=== PATIENT | male | born 1980 | race African-American/Black ===

== ENCOUNTER 2017-01-16 11:43 | Emergency (ER) | payer OTHER ==
[~2017-01-16] VITALS: Ht 177.8 cm; Wt 93.0 kg
[~2017-01-16 11:43] MED LIST: ALBUTEROL0.09 MG/A1 INH; CIPRO500 M1 PO; MEDROL DOSEPAK1 PAC PO; NORVASC5 M1 PO; TESSALON PERLE100 MG PO; VENTOLIN HFA18 GM INH
--- NOTE | 2017-01-16 12:56 | ED GI/GU/ABDOMINAL COMPLAINT ---
History of Present Illness General Chief Complaint: General Adult Stated Complaint: DIZZY,FLANK PAIN Source: patient Exam Limitations: no limitations Allergies Coded Allergies: No Known Drug Allergies (Intermediate, UNKNOWN 07/19/16) Reconcile Medications Amlodipine Besylate (Norvasc) 5 MG TABLET 1 TAB PO DAILY HTN (Reported) Triage Note: PT STATES HE FELT LIGHT HEADED ALL THIS AM. PT DENIES COLD S/S. PT DENIES CHEST PAIN. PT STATE "I SHOULD DRINK MORE WATER". PT STATES HE HAS KIDNEY PROBLEMS AND HIS LEVELS WHERE HIGH. PT STATES THIS IS HOW HE FELT THE LAST TIME. Triage Nurses Notes Reviewed? yes HPI: This patient is a 36-year-old male with a past medical history including hypertension and substance abuse who presented to the emergency department today for evaluation of, "I just didn't feel well." Patient reported that he woke up not feeling well with lightheadedness, nausea, and general malaise. He reported that he initially thought that maybe his blood pressure was high, so he took his regular morning dose of amlodipine 5 mg. He reported that generally he takes this after he eats at approximately 1:00 in the afternoon. He reported that since he has been here in the emergency department he does feel better. He reported that he felt his kidneys, "throbbing," but not anymore. He reported that he has had kidney injury in the past. He denied any fevers, chills, visual changes, epistaxis, diaphoresis, chest pain, palpitations, shortness of breath, vomiting, abdominal pain, back pain, groin pain, urinary burning, urgency, frequency, blood in the urine, saddle paresthesia, bowel or bladder incontinence , or any other associated symptoms. (LISBET TEAGUE,MARILIA) Vital Signs & Intake/Output Vital Signs & Intake/Output ED Intake and Output 01/17 0000 01/16 1200 Intake Total Output Total Balance Patient 205 lb Weight Past History Travel History Traveled to [place] past 21 day No Medical History Any Pertinent Medical History? see below for history Neurological: NONE EENT: NONE Cardiovascular: hypertension Respiratory: NONE Gastrointestinal: NONE Hepatic: NONE Renal: ACUTE KIDNEY INJURY Musculoskeletal: NONE Psychiatric: cocaine abuse, cannabis abuse Endocrine: NONE Blood Disorders: NONE Cancer(s): NONE FRUIT COORDINATOR/Reproductive: NONE History of MRSA: No History of VRE: No History of CDIFF: No Surgical History Surgical History: non-contributory Psychosocial History Who do you live with Patient/Self Services at Home None What is your primary language Emir[place] Tobacco Use: Current Daily Use Daily Tobacco Use Amount/Type: => 5 Cigarettes daily ETOH Use: occasional use Illicit Drug Use: cocaine, marijuana Family History Family History, If Any: SISTER, , Age 47; Cause: Renal failure. FH: renal failure MOTHER, , Age 40-50; Cause: Bone cancer. Bone cancer Hx Contributory? No (MARILIA FRAUSTO PA-C) Review of Systems Review of Systems Constitutional: Reports: see HPI. EENTM: Reports: no symptoms. Respiratory: Reports: no symptoms. Cardiovascular: Reports: no symptoms. GI: Reports: no symptoms. Genitourinary: Reports: see HPI. Musculoskeletal: Reports: no symptoms. Skin: Reports: no symptoms. Neurological/Psychological: Reports: no symptoms. All Other Systems: Reviewed and Negative (MARILIA FRAUSTO PA-C) Physical Exam Physical Exam Gastrointestinal: normal bowel sounds, soft, non-tender, no organomegaly, NO REBOUND OR GUARDING. nONDISTENDED. NO PERITONEAL SIGNS Comments: Well-developed well-nourished person in no acute distress HEENT: Normal EENT exam, head normocephalic, moist mucous membranes PERRLA bilaterally. No papilledema Neck: Supple Back: Normal gait. No midline tenderness. No CVA tenderness bilaterally Cardiovascular: Regular rate and rhythm with no murmurs, rubs, gallops. No JVD or carotid bruits Respiratory: No respiratory distress. Breath sounds clear to auscultation bilaterally Extremity: Normal and equal pulses Neuro: Alert oriented x3, cranial nerves II through XII grossly intact. No focal neurologic deficits Skin: No appreciable rash on exposed skin, skin is warm and dry. Psych: Mood and affect is normal Core Measures ACS in differential dx? Yes Severe Sepsis Present: No Septic Shock Present: No (MARILIA FRAUSTO PA-C) Progress Differential Diagnosis: AAA, AMI, appendicitis, biliary colic, bowel obstruction , colon cancer, cholecystitis, diverticulitis, gastritis, hepatitis, ischemic bowel, inflamm bowel dis, pancreatitis, PUD/GERD, perforated viscous, pyelonephritis, UTI/pyelo, HYPERTENSIVE URGENCY, HYPERTENSIVE CRISIS, HYPERTENSION Plan of Care: Orders Procedure Date/time Status Heart Healthy Diet 01/16 D Active Add-on Test (ER Only) 01/16 1431 Active URINE DRUGS OF ABUSE 01/16 1255 Complete URINALYSIS 01/16 1235 Complete TROPONIN LEVEL 01/16 1235 Complete COMPREHENSIVE METABOLIC PANEL 01/16 1235 Complete CBC WITHOUT DIFFERENTIAL 01/16 123 Complete EKG 01/16 1235 Active Current Medications Sig/Gaetano Start time Last Medication Dose Stop Time Status Admin Ketorolac 30 MG ONCE ONE 01/16 1245 CAN Tromethamine 01/16 1246 (Toradol) Ondansetron HCl 4 MG ONCE ONE 01/16 1245 CAN (Zofran) 01/16 1246 Laboratory Tests 01/16/17 1255: Urine Opiates Screen < 100.00, Methadone Screen < 40, Barbiturate Screen < 60, Ur Phencyclidine Scrn < 6.00, Amphetamines Screen < 100, U Benzodiazepines Scrn < 85, Urine Cocaine Screen > 1000 H, Urine Cannabis Screen > 80.00 H 01/16/17 1254: Urine Color YEL, Urine Clarity CLEAR, Urine pH 6.0, Ur Specific Sarona 1.020, Urine Protein 100 H, Urine Ketones NEG, Urine Nitrite NEG, Urine Bilirubin NEG, Urine Urobilinogen 0.2, Ur Leukocyte Esterase NEG, Ur Microscopic SEDIMENT EXAMINED, Urine RBC 50-75 H, Urine WBC RARE, Ur Epithelial Cells RARE, Hyaline Casts 1-3 H, Granular Casts RARE H, Urine Mucus RARE, Urine Hemoglobin LARGE H, Urine Glucose NEG 01/16/17 1248: Anion Gap 10, Estimated GFR > 60, BUN/Creatinine Ratio 12.3, Glucose 90, Calcium 9.6, Total Bilirubin 0.9, AST 18, ALT 33, Alkaline Phosphatase 115, Troponin I < 0.01, Total Protein 7.6, Albumin 4.0, Globulin 3.6, Albumin/Globulin Ratio 1.1, CBC w Diff NO MAN DIFF REQ, RBC 5.51, MCV 79.9 L, MCH 26.6 L, RDW 13.7, MPV 8.0, Gran % 77.4 H, Lymphocytes % 12.3 L, Monocytes % 4.2, Eosinophils % 5.3 H, Basophils % 0.8, Absolute Granulocytes 9.2 H, Absolute Lymphocytes 1.5, Absolute Monocytes 0.5, Absolute Eosinophils 0.6, Absolute Basophils 0.1, PUBS MCHC 33.3 Initial ED EKG: LVH, nonspecific ST T wave chg, 68 BPM Comments: 01/16/2017 1:39:10 PM: As of the patient's bedside for evaluation. He is currently resting comfortably on the stretcher, awaiting his food tray. The patient reported that he has been told that he has blood in his urine in the past. His primary care physician is aware of this. He is refusing CT scan at this time to rule out any stone that he reported, "I have aren't even worked up for that and there are no stones." He reiterated that there are no urinary symptoms such as burning, urgency, frequency, or any blood in the urine that he can see. He reported, "I am not having any difficulty with my urine. 01/16/2017 3:26:14 PM: Patient has high BP at baseline. Is going to follow-up with his PCP. Denies chest pain, palpitations, blurry vision, lightheadedness, dizziness, nasuea, or any other symptoms at this time. Discussed with Dr. Penn who is in agreement that this patient is stable for discharge with outpatient PCP follow-up. (MARILIA FRAUSTO PA-C) Departure Departure Disposition: HOME OR SELF CARE Condition: Stable Clinical Impression Primary Impression: Hypotension Qualifiers: Hypotension type: unspecified hypotension type Qualified Code: I95.9 - Hypotension, unspecified Referrals: LUCILLE ESTES MD (PCP/Family) Additional Instructions: Follow-up with your primary care physician. Take all previously prescribed medications as directed. Return for any worsening symptoms or concerns. Departure Forms: Customer Survey General Discharge Information (MARILIA FRAUSTO PA-C) PA/ABSORPTION OPERATOR Co-Sign Statement Statement: ED Attending supervision documentation- [] I saw and evaluated the patient. I have also reviewed all the pertinent lab results and diagnostic results. I agree with the findings and the plan of care as documented in the PA's/ABSORPTION OPERATOR's documentation. x I have reviewed the ED Record and agree with the PA's/ABSORPTION OPERATOR's documentation. [] Additions or exceptions (if any) to the PAs/ABSORPTION OPERATOR's note and plan are summarized below: [] (MACIEL HELTON,BELLA)
[2017-01-16 13:00] LABS: ABSOLUTE BASOPHIL COUNT 0.1 /CUMM (0.0-0.2); ABSOLUTE EOSINOPHIL COUNT 0.6 /CUMM (0.0-0.7); ABSOLUTE GRANULOCYTE CT 9.2 /CUMM (1.4-6.5); ABSOLUTE LYMPH COUNT 1.5 /CUMM (1.2-3.4); ABSOLUTE MONOCYTE COUNT 0.5 /CUMM (0.10-0.60); BASOPHIL % 0.8 % (0.0-2.0); EOSINOPHIL % 5.3 % (0-5); GRANULOCYTE % 77.4 % (42.2-75.2); HEMATOCRIT 44.1 % (42-52); MEAN CORPUSCULAR HGB 26.6 PG (27.0-31.0); MEAN CORPUSCULAR HGB CONC 33.3 G/DL (33.0-37.0); MEAN CORPUSCULAR VOLUME 79.9 FL (80.0-94.0); PLATELET COUNT 288 /CUMM (130-400); RBC DISTRIBUTION WIDTH 13.7 % (11.5-14.5); RED BLOOD CELL CT 5.51 /CUMM (4.70-6.10); WHITE BLOOD CELL COUNT 11.9 /CUMM (4.8-10.8)
[2017-01-16 15:09] VITALS: BP 140/108
== END 2017-01-16 15:34 ==
LOC: ERH 11:43
PROVIDERS: Physician Assistant
DX: I95.9 Hypotension, unspecified (principal); R10.9 Unspecified abdominal pain; R11.0 Nausea; F14.10 Cocaine abuse, uncomplicated; F12.10 Cannabis abuse, uncomplicated
CPT/HCPCS: 80307; 81001; 93005; 93010

== ENCOUNTER 2017-04-12 11:48 | Emergency (ER) | payer OTHER ==
[~2017-04-12] VITALS: Ht 177.8 cm; Wt 93.9 kg
--- NOTE | 2017-04-12 12:34 | ED PSY CRISIS COLLATERAL NOTE ---
See Addendum Collateral Note Collateral Note Family/Inform/Vickey Contacts: Pt's Therapist Denzel from [facility] called to inform that he recommended pt come to the ED because he has been severely depressed to the point he is not functioning like him elf and having passive SI. He is having thoughts that he does not want to be alive, but has no specific plan to end his life. He would like pt to be evaluated for inpt psych tx. Denzel would like to be contacted for ongoing collaboration about pt. Denzel may be reached at ext [phone].
--- NOTE | 2017-04-12 13:41 | ED PSYCHIATRIC COMPLAINT ---
History of Present Illness General Chief Complaint: Psychiatric Related Complaint Stated Complaint: +SI Source: patient Exam Limitations: no limitations Vital Signs & Intake/Output Vital Signs & Intake/Output Vital Signs Date Time Temp Pulse Resp B/P B/P Pulse O2 O2 Flow FiO2 Mean Ox Delivery Rate 04/12 1407 97.5 76 18 126/88 98 Room Air 04/12 1154 98.3 74 16 134/94 97 Room Air Allergies Coded Allergies: No Known Drug Allergies (Intermediate, UNKNOWN 07/19/16) Reconcile Medications Amlodipine Besylate (Norvasc) 5 MG TABLET 1 TAB PO 1400 HTN (Reported) Triage Note: PT STATES HE IS FEELING DEPRESSED AND STATES HIS COUNCELOR SENT HIM HERE TO SPEAK WITH A PHYSICAL SCIENCES PROFESSOR. PT DENIES SI TODAY STATES HE DID FEEL THAT WAY YESTERDAY AND IT SCARED HIM, STATES THIS IS THE FIRST TIME IT EVERY CROSSED HIS MIND. PT DENIES HI. PT IS NOT ON ANY MEDS FOR HIS DEPRESSION. PT DENIES DRUGS OR ETOH USE. Triage Nurses Notes Reviewed? yes HPI: Patient states that he believes he checked into the emergency department by mistake. Patient states that he was in an anger management counseling session and expressed depression and the wish that "it would all just end". The patient 's counselor recommended he go to the emergency department for evaluation. Patient was under the impression that he would simply be talking to a depression counselor. He states that at no point did he have any real suicide ideation and adamantly denies any intent at all to commit suicide or ever harm himself. He does admit to feeling depressed due to a number of life stressors but does not feel depressed enough to require hospitalization. He denies drug use and drinks alcohol only occasionally. Past History Travel History Traveled to [place] past 21 day No Medical History Any Pertinent Medical History? see below for history Neurological: NONE EENT: NONE Cardiovascular: hypertension Respiratory: NONE Gastrointestinal: NONE Hepatic: NONE Renal: ACUTE KIDNEY INJURY Musculoskeletal: NONE Psychiatric: cocaine abuse, cannabis abuse Endocrine: NONE Blood Disorders: NONE Cancer(s): NONE OPERATOR AUTOMATED PROCESS/Reproductive: NONE History of MRSA: No History of VRE: No History of CDIFF: No Surgical History Surgical History: non-contributory Psychosocial History Who do you live with Patient/Self Services at Home None What is your primary language [place]ese Tobacco Use: Current Daily Use Daily Tobacco Use Amount/Type: => 5 Cigarettes daily ETOH Use: occasional use Illicit Drug Use: denies illicit drug use Family History Family History, If Any: SISTER, , Age 47; Cause: Renal failure. FH: renal failure MOTHER, , Age 40-50; Cause: Bone cancer. Bone cancer Hx Contributory? No Review of Systems Review of Systems Constitutional: Reports: no symptoms. EENTM: Reports: no symptoms. Respiratory: Reports: no symptoms. Cardiovascular: Reports: no symptoms. GI: Reports: no symptoms. Genitourinary: Reports: no symptoms. Musculoskeletal: Reports: no symptoms. Skin: Reports: no symptoms. Neurological/Psychological: Reports: depressed. Hematologic/Endocrine: Reports: no symptoms. Immunologic/Allergic: Reports: no symptoms. All Other Systems: Reviewed and Negative Physical Exam Physical Exam General Appearance: SEE BELOW Neurological/Psychiatric: SEE BELOW Comments: General: Alert, calm, cooperative Head: Normocephalic, atraumatic Eyes: Normal inspection, no nystagmus, EOMI Ears: Normal inspection Nose: Normal inspection Throat: Moist mucosa Neck: Supple, no goiter Heart: Regular rate and rhythm, no murmurs rubs or gallops Lungs: Clear to auscultation bilaterally with good air entry Abdomen: Soft nontender nondistended, normal bowel sounds Chest: Nontender Extremities: Normal range of motion grossly, no tremors present, no cyanosis clubbing or edema of the upper extremities Neurologic: cranial nerves II through XII grossly intact, speech clear, gait normal Psychiatric: No apparent delusions or hallucinations, no pressured speech or thought blocking, pleasant and cheerful affect SAD PERSONS Done? patient not suicidal Progress Differential Diagnosis: DEPRESSION, BIPOLAR DISORDER Plan of Care: SEE D/C INSTRUCTIONS Comments: Patient evaluated by crisis and felt to be stable for outpatient management. Departure Departure Disposition: HOME OR SELF CARE Condition: Stable Clinical Impression Primary Impression: Depression Qualifiers: Depression Type: unspecified Qualified Code: F32.9 - Major depressive disorder, single episode, unspecified Referrals: LUCILLE ESTES MD (PCP/Family) Additional Instructions: Follow-up with the [facility] outpatient psychiatry program for help with your depression. Otherwise continue your current counseling sessions at [facility]. Notify your primary care doctor of this emergency department visit and treatment plan. Return if any concerns or sudden worsening. Departure Forms: Customer Survey General Discharge Information
[2017-04-12 14:07] VITALS: BP 126/88
== END 2017-04-12 14:47 ==
LOC: ERH 11:48
DX: F32.9 Major depressive disorder, single episode, unspecified (principal)

== ENCOUNTER 2018-08-11 13:12 | Emergency (ER) | payer OTHER ==
[~2018-08-11] VITALS: Ht 177.8 cm; Wt 93.0 kg
[~2018-08-11 13:12] MED LIST changes: +CYCLOBENZAPRINE10 M1 PO; +PERCOCET 5-3251 EACH PO
[2018-08-11 14:10] LABS: ABSOLUTE BASOPHIL COUNT 0 /CUMM (0.0-0.2); ABSOLUTE EOSINOPHIL COUNT 0.1 /CUMM (0.0-0.7); ABSOLUTE GRANULOCYTE CT 13.4 /CUMM (1.4-6.5); ABSOLUTE LYMPH COUNT 0.8 /CUMM (1.2-3.4); ABSOLUTE MONOCYTE COUNT 0.5 /CUMM (0.10-0.60); BASOPHIL % 0.2 % (0.0-2.0); EOSINOPHIL % 0.5 % (0-5); HEMATOCRIT 46.5 % (42-52); MEAN CORPUSCULAR HGB 26.9 PG (27.0-31.0); MEAN CORPUSCULAR HGB CONC 32.9 G/DL (33.0-37.0); MEAN CORPUSCULAR VOLUME 81.8 FL (80.0-94.0); MEAN PLATELET VOLUME 7.9 FL (7.4-10.4); PLATELET COUNT 306 /CUMM (130-400); RED BLOOD CELL CT 5.69 /CUMM (4.70-6.10); WHITE BLOOD CELL COUNT 14.9 /CUMM (4.8-10.8)
--- NOTE | 2018-08-11 14:14 | CT SCAN REPORT ---
EXAMINATION: CT ABDOMEN AND PELVIS WITHOUT CONTRAST CLINICAL INFORMATION: Bilateral flank pain and hematuria. COMPARISON: Renal ultrasound, 08/30/2017 CT images of abdomen from 08/20/2017. TECHNIQUE: Multidetector volumetric imaging was performed from the superior aspect of the liver through the pubic symphysis. Sagittal and coronal reformatted images were obtained on the technologist's workstation. DLP: 461 mGy-cm FINDINGS: LUNG BASES: Bronchial calderon are chronically thickened in the visualized lung bases and there are scattered endobronchial secretions. Multiple tree-in-bud nodular opacities are present within lower lobes -- new compared to 08/20/2017. Also, findings include some new small patchy airspace/nodular opacities in the left lower lobe. LIVER, GALLBLADDER, AND BILIARY TREE: Diffuse hepatic steatosis or steatohepatitis without focal hepatic lesion or perihepatic fluid. Gallbladder is unremarkable. No intrahepatic or extrahepatic bile duct dilatation. PANCREAS: Unremarkable. SPLEEN: Unremarkable. ADRENAL GLANDS: Unremarkable. KIDNEYS AND URETERS: The kidneys have normal size, shape, and attenuation. No hydroureteronephrosis, urolithiasis or perinephric stranding. BLADDER: Unremarkable. BOWEL AND PERITONEUM: The small and large bowel are normal in caliber. The appendix is normal. No evidence of acute inflammation or obstruction along the gastrointestinal tract. No ascites or pneumoperitoneum. ABDOMINAL WALL: Unremarkable. LYMPH NODES: No pathologic sized lymph nodes in the abdomen or pelvis. No inguinal lymphadenopathy. VASCULAR: Unremarkable. PELVIC: Unremarkable. MUSCULOSKELETAL: Unremarkable. IMPRESSION: 1. Kidneys are normal. No evidence of urolithiasis or urinary tract obstruction. 2. Liver is diffusely hypodense from steatosis (or steatohepatitis). Recommend correlation with liver function tests. 3. Bronchial calderon are chronically thickened in the visualized lung bases. Multiple new tree-in-bud nodular opacities are present within the bases along with some new small airspace/nodular opacities in the left lower lobe. Correlate clinically for signs/symptoms of active infectious bronchiolitis and pneumonia.
--- NOTE | 2018-08-11 16:05 | RADIOLOGY REPORT ---
EXAMINATION: XR CHEST CLINICAL INFORMATION: Cough. Shortness of breath and wheezing. COMPARISON: Chest x-ray from 07/19/2016. TECHNIQUE: 2 views of the chest were obtained. FINDINGS: The cardiac mediastinal silhouette is normal. No airspace opacities or pleural effusions are seen. No osseous abnormality is visible. IMPRESSION: Clear lungs. No acute process.
--- NOTE | 2018-08-11 16:11 | ED GENERAL ADULT ---
History of Present Illness General Chief Complaint: Abdominal Pain/Flank Pain Stated Complaint: FLANK PAIN Source: patient Exam Limitations: no limitations Vital Signs & Intake/Output Vital Signs & Intake/Output Vital Signs Date Time Temp Pulse Resp B/P B/P Pulse O2 O2 Flow FiO2 Mean Ox Delivery Rate 08/11 1623 98.8 97 18 185/90 98 Room Air 08/11 1521 97.4 98 20 177/106 94 08/11 1500 95 Room Air 08/11 1315 97.8 109 20 152/110 96 Room Air ED Intake and Output 08/12 0000 08/11 1200 Intake Total Output Total Balance Patient 205 lb Weight Weight Reported by Patient Measurement Method Allergies Coded Allergies: No Known Drug Allergies (Intermediate, UNKNOWN 07/19/16) Reconcile Medications Albuterol Sulfate (Proair Hfa) 90 MCG HFA.AER.AD 2 PUF INH Q4-6 PRN PRN COUGH Amlodipine Besylate (Norvasc) 5 MG TABLET 1 TAB PO DAILY HTN (Reported) Azithromycin (Zithromax) 250 MG TABLET 1 DP PO AD bronchitis 2 the first day followed by 1 for days 2-5 Ciprofloxacin HCl (Cipro) 500 MG TABLET 1 TAB PO BID UTI Hydrocodone/Acetaminophen ([place] 5-325 Tablet) 5 MG-325 MG TABLET 1-2 TAB PO Q4-6 PRN PRN PAIN Prednisone 50 MG TABLET 1 TAB PO DAILY BRONCHITIS Triage Note: PT TO ED C/O B/L FLANK PAIN X A FEW DAYS. DENIES S/S. DENIES BLOOD IN URINE. H/O JEWELS. Triage Nurses Notes Reviewed? yes Onset: Abrupt Duration: day(s): (1), constant, continues in ED, getting worse Timing: single episode today Injury Environment: home Severity: moderate, severe Severity Numbers: 7 No Modifying Factors: none HPI: 38-year-old male with a history of chronic kidney disease and hypertension presents for evaluation of bilateral lower back pain hematuria cough and wheezing. Patient reports symptoms have been going on for the past few days getting worse. The pain is located on both sides of his lower back and both flanks. He has reported noticing some blood in his urine he has had this before. Denies any history of kidney stones but reports that he frequently gets kidney pain related to acute kidney injury. He denies nausea vomiting he's eating and drinking. No fevers dysuria frequency or urgency. He does smoke. He denies history of COPD or asthma. He does not have an inhaler. He reports a cough productive of YELLOW sputum. No chest pain no hemoptysis no lower extremity edema Past History Travel History Traveled to [place] past 21 day No Medical History Any Pertinent Medical History? 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 FH: renal failure MOTHER, , Age 40-50; Cause: Bone cancer. Bone cancer Hx Contributory? No Review of Systems Review of Systems Constitutional: Reports: no symptoms. EENTM: Reports: no symptoms. Respiratory: Reports: see HPI, cough, short of breath, sputum production, wheezing. Cardiovascular: Reports: no symptoms. GI: Reports: see HPI, abdominal pain. Genitourinary: Reports: hematuria. Musculoskeletal: Reports: see HPI, back pain. Skin: Reports: no symptoms. Neurological/Psychological: Reports: no symptoms. Hematologic/Endocrine: Reports: no symptoms. Immunologic/Allergic: Reports: no symptoms. All Other Systems: Reviewed and Negative Physical Exam Physical Exam General Appearance: well developed/nourished, no apparent distress, alert, awake Head: atraumatic, normal appearance Eyes: Bilateral: normal appearance, PERRL, EOMI. Ears, Nose, Throat: normal pharynx, normal ENT inspection, hearing grossly normal Neck: normal inspection, supple, full range of motion Respiratory: chest non-tender, no respiratory distress, rhonchi, wheezing Cardiovascular: regular rate/rhythm, normal peripheral pulses Peripheral Pulses: 2+ radial (R), 2+ radial (L) Gastrointestinal: normal bowel sounds, soft, no organomegaly, tenderness ( BILATERAL FLANK) Back: normal inspection, normal range of motion, no vertebral tenderness, BILATERAL LUMBAR PARASPINAL MUSCLES TENDER TO PALPATION. nO MIDLINE TENDERNESS NO cva TENDERNESS NO BRUISING SWELLING ABRASIONS Extremities: normal inspection, normal range of motion, no edema Neurologic/Psych: no motor/sensory deficits, awake, alert, oriented x 3, normal gait, normal mood/affect Skin: intact, normal color, warm/dry Lymphatic: no anterior cervical laura Core Measures ACS in differential dx? No CVA/TIA Diagnosis: No Sepsis Present: No Sepsis Focused Exam Completed? No Progress Differential Diagnoses I considered the following diagnoses in my evaluation of the patient: [Kidney stone, pyelonephritis, bronchitis, pneumonia, muscle strain, herniated disc] Plan of Care: Orders Procedure Date/time Status URINALYSIS 08/11 1317 Complete COMPREHENSIVE METABOLIC PANEL 08/11 1317 Complete CBC WITHOUT DIFFERENTIAL 08/11 1317 Complete Laboratory Tests 08/11/18 1355: Anion Gap 9, Estimated GFR 56 L, BUN/Creatinine Ratio 10.0, Glucose 98, Calcium 9.5, Total Bilirubin 0.9, AST 42, ALT 52, Alkaline Phosphatase 115, Total Protein 7.4, Albumin 4.1, Globulin 3.3, Albumin/Globulin Ratio 1.2, CBC w Diff MAN DIFF ORDERED, RBC 5.69, MCV 81.8, MCH 26.9 L, MCHC 32.9 L, RDW 14.0, MPV 7.9, Gran % 90.0 H, Lymphocytes % 5.7 L, Monocytes % 3.6, Eosinophils % 0.5, Basophils % 0.2, Absolute Granulocytes 13.4 H, Absolute Lymphocytes 0.8 L, Absolute Monocytes 0.5, Absolute Eosinophils 0.1, Absolute Basophils 0, Platelet Estimate VERIFIED BY SMEAR, Normocytic RBCs VERIFIED, Normochromic RBCs VERIFIED 08/11/18 1331: Urinalysis LIGHT H, Urine Color YEL, Urine Clarity HAZY H, Urine pH 6.0, Ur Specific [place] >= 1.030, Urine Protein 100 H, Urine Ketones 15 H, Urine Nitrite NEG, Urine Bilirubin NEG, Urine Urobilinogen 0.2, Ur Leukocyte Esterase NEG, Ur Microscopic SEDIMENT EXAMINED, Urine RBC 25-50 H, Urine WBC 1-3 H, Ur Epithelial Cells FEW, Urine Bacteria RARE H, Granular Casts FEW H, Urine Mucus MOD H, Urine Hemoglobin LARGE H, Urine Glucose NEG, Urine Comment ABF Patient is here for evaluation of bilateral flank pain and hematuria back pain cough and wheezing. On exam he is bilateral wheezing and rhonchi. Cough reveals sputum he is a smoker. Chest x-ray is clear labs CT scan of the ABDOMEN and pelvis was ordered patient medicated with Toradol. Blood work reveals a white blood cell count of 15,000. Creatinine is 1.4 which is baseline for this patient. Urine is showing hematuria without signs of infection. CT scan report as below. Kidneys are normal. No evidence of urolithiasis or urinary tract obstruction. 2. Liver is diffusely hypodense from steatosis (or steatohepatitis). Recommend correlation with liver function tests. 3. Bronchial calderon are chronically thickened in the visualized lung bases. Multiple new tree-in-bud nodular opacities are present within the bases along with some new small airspace/nodular opacities in the left lower lobe. Correlate clinically for signs/symptoms of active infectious bronchiolitis and pneumonia. Reviewed results with patient. Chest x-ray was negative for pneumonia patient does have a white count of cough. No fevers. He'll be covered for pneumonia/ bronchitis with Zithromax prednisone pro-air inhaler. [place] for severe pain. Tylenol for pain. Drink plenty of fluids and follow-up with primary care doctor. Patient was also advised to follow-up with a back end web developer/urologist. Discussed return precautions in detail patient agrees the plan Diagnostic Imaging: Viewed by Me: Radiology Read, CT Scan. Discussed w/RAD: Radiology Read, CT Scan. Radiology Impression: PATIENT: GARRETT SANTOS PRESENT AGE: 38 PATIENT ACCOUNT NO: [id number] : 79 LOCATION: [facility] ORDERING PHYSICIAN: Brannon SAMAYOA SERVICE DATE: 08/11/18 EXAM TYPE: RAD - XRY- CHEST XRAY, TWO VIEWS EXAMINATION: XR CHEST CLINICAL INFORMATION: Cough. Shortness of breath and wheezing. COMPARISON: Chest x-ray from 07/19/2016. TECHNIQUE: 2 views of the chest were obtained. FINDINGS: The cardiac mediastinal silhouette is normal. No airspace opacities or pleural effusions are seen. No osseous abnormality is visible. IMPRESSION: Clear lungs. No acute process. DICTATED BY: Darnell Delgadillo MD DATE/TIME DICTATED:08/11/181600 LOAD MANAGER:KEYANA DATE/TIME TRANSCRIBED:09/16/18 / 1601 CONFIDENTIAL, DO NOT COPY WITHOUT APPROPRIATE AUTHORIZATION. <Electronically signed in Other Vendor System> SIGNED BY: Darnell Delgadillo MD 08/11/18 1606, PATIENT: GARRETT SANTOS PRESENT AGE: 38 PATIENT ACCOUNT NO: [id number] : 79 LOCATION: [facility] ORDERING PHYSICIAN: Brannon SAMAYOA SERVICE DATE: 08/11/18 EXAM TYPE: CAT - CT ABD & PELVIS W/O IV CONTRAS EXAMINATION: CT ABDOMEN AND PELVIS WITHOUT CONTRAST CLINICAL INFORMATION: Bilateral flank pain and hematuria. COMPARISON: Renal ultrasound, 08/30/2017 CT images of abdomen from 08/20/2017. TECHNIQUE: Multidetector volumetric imaging was performed from the superior aspect of the liver through the pubic symphysis. Sagittal and coronal reformatted images were obtained on the technologist's workstation. DLP: 461 mGy-cm FINDINGS: LUNG BASES: Bronchial calderon are chronically thickened in the visualized lung bases and there are scattered endobronchial secretions. Multiple tree-in-bud nodular opacities are present within lower lobes -- new compared to 08/20/2017. Also, findings include some new small patchy airspace/ nodular opacities in the left lower lobe. LIVER, GALLBLADDER, AND BILIARY TREE: Diffuse hepatic steatosis or steatohepatitis without focal hepatic lesion or perihepatic fluid. Gallbladder is unremarkable. No intrahepatic or extrahepatic bile duct dilatation. PANCREAS: Unremarkable. SPLEEN: Unremarkable. ADRENAL GLANDS: Unremarkable. KIDNEYS AND URETERS: The kidneys have normal size, shape, and attenuation. No hydroureteronephrosis, urolithiasis or perinephric stranding. BLADDER: Unremarkable. BOWEL AND PERITONEUM: The small and large bowel are normal in caliber. The appendix is normal. No evidence of acute inflammation or obstruction along the gastrointestinal tract. No ascites or pneumoperitoneum. ABDOMINAL WALL: Unremarkable. LYMPH NODES: No pathologic sized lymph nodes in the abdomen or pelvis. No inguinal lymphadenopathy. VASCULAR: Unremarkable. PELVIC: Unremarkable. MUSCULOSKELETAL: Unremarkable. IMPRESSION: 1. Kidneys are normal. No evidence of urolithiasis or urinary tract obstruction. 2. Liver is diffusely hypodense from steatosis (or steatohepatitis). Recommend correlation with liver function tests. 3. Bronchial calderon are chronically thickened in the visualized lung bases. Multiple new tree-in-bud nodular opacities are present within the bases along with some new small airspace/ nodular opacities in the left lower lobe. Correlate clinically for signs/ symptoms of active infectious bronchiolitis and pneumonia. DICTATED BY: Yinka Betancourt MD DATE/TIME DICTATED:08/11/181402 LOAD MANAGER:KEYANA DATE/ TIME TRANSCRIBED:08/11/181402 CONFIDENTIAL, DO NOT COPY WITHOUT APPROPRIATE AUTHORIZATION. Initial ED EKG: none Departure Departure Disposition: HOME OR SELF CARE Condition: Stable Clinical Impression Primary Impression: Lower back pain Qualifiers: Chronicity: acute Back pain laterality: bilateral Sciatica presence : without sciatica Qualified Code: M54.5 - Low back pain Secondary Impressions: Acute bronchitis Qualifiers: Bronchitis organism: unspecified organism Qualified Code: J20.9 - Acute bronchitis, unspecified Referrals: Drew HELTON,Darnell Ferreira (PCP/Family) Additional Instructions: Rest, avoid heavy lifting bending excessive physical activity. Take antibiotics and steroids as directed for the full course. Pro-air inhaler 2 puffs every 4-6 hours as needed. [place] for severe pain only. Need to follow-up with the primary care doctor and a kidney specialist to review all results of today's visit. You should also see a lung doctor to review the abnormal findings on your CT scan related to your lungs. Quit smoking. Monitor your symptoms return with any concerns. Departure Forms: Customer Survey General Discharge Information Prescriptions: Current Visit Scripts Prednisone 1 TAB PO DAILY #5 TAB Albuterol Sulfate (Proair Hfa) 2 PUF INH Q4-6 PRN PRN COUGH #1 INHAL Hydrocodone/Acetaminophen ([place] 5-325 Tablet) 1-2 TAB PO Q4-6 PRN PRN PAIN #10 TAB Azithromycin (Zithromax) 1 DP PO AD #6 TAB 2 the first day followed by 1 for days 2-5 Critical Care Note Critical Care Note Critical Care Time: non-applicable
[2018-08-11] MEDS ORDERED: NORCO 5-325 TA1 EACH PO (16:17)
[2018-08-11] MEDS ORDERED: PREDNISONE50 M1 PO (16:17)
[2018-08-11] MEDS ORDERED: PROAIR HFA8.5 GM INH (16:17)
[2018-08-11] MEDS ORDERED: ZITHROMAX250 M2 PO (16:18)
[2018-08-11 16:23] VITALS: BP 185/90
== END 2018-08-11 16:21 ==
LOC: ERH 13:12
PROVIDERS: Physician Assistant Medical
DX: M54.5 Low back pain (principal); J20.9 Acute bronchitis, unspecified; I10 Essential (primary) hypertension; F17.210 Nicotine dependence, cigarettes, uncomplicated; F10.10 Alcohol abuse, uncomplicated; F14.10 Cocaine abuse, uncomplicated
CPT/HCPCS: 1263; 71046; 74176; 81001; J1885